=== PATIENT | female | born 1960 | race Caucasian/White ===

== ENCOUNTER → 2021-02-06 | Outpatient (CLI) | payer MEDICAID ==
[~2021-02-06] MED LIST: OMNIPAQUE 350 MG/ML, 150 ML BOTTLE ONE
== END | disposition home or self-care (01) ==
LOC: CFH 13:41
PROVIDERS: ATTEND Physician Assistant Medical
DX: I70.203 Unspecified atherosclerosis of native arteries of extremities, bilateral legs (principal); M79.675 Pain in left toe(s)
CPT/HCPCS: 71275; 75635; 82565; Q9967